=== PATIENT | female | born 1965 | race Caucasian/White ===

== ENCOUNTER 2020-11-08 11:37 | Observation (INO) | payer OTHER ==
[2020-11-08] MEDS ORDERED: ASPIRIN 81 MG PO STA (12:15)
[2020-11-08] MEDS ORDERED: LORazepam 2 MG/ML INJ IV STA (12:16)
[2020-11-08 12:44] LABS: Basophils # (A) 0.1 k/uL (0-0.2); Basophils % (A) 1 %; Eosinophils # (A) 0.3 k/uL (0-0.7); Eosinophils % (A) 4 %; HCT 44.2 % (34.0-46.0); HGB 14.9 gm/dL (11.4-16.0); Lymphocytes # (A) 1.7 k/uL (1.0-4.8); Lymphocytes % (A) 22 %; MCH 30.4 pg (25.0-35.0); MCHC 33.7 g/dL (31.0-37.0); MCV 90.2 fL (80.0-100.0); Mean Platelet Volume 8.1; Monocytes # (A) 0.3 k/uL (0-1.0); Monocytes % (A) 5 %; Neutrophils % (A) 66 %; Platelet Count 324 k/uL (150-450); RDW 13.3 % (11.5-15.5); WBC 7.5 k/uL (3.8-10.6)
[2020-11-08 12:45] LABS: INR 0.9 (<1.2); Partial Thromboplastin Time 25.8 sec (22.0-30.0); Prothrombin Time 9.9 sec (9.0-12.0)
[2020-11-08 12:55] LABS: ALT 25 U/L (4-34); AST 24 U/L (14-36); African American GFR (CKD) >90 (>60 ml/min/1.73 sqM); Albumin 4.6 g/dL (3.5-5.0); Alkaline Phosphatase 111 U/L (38-126); Anion Gap 8 mmol/L; Blood Urea Nitrogen 8 mg/dL (7-17); Calcium 10.4 mg/dL (8.4-10.2); Carbon Dioxide 27 mmol/L (22-30); Chloride 105 mmol/L (98-107); Glucose 93 mg/dL (74-99); Magnesium 1.9 mg/dL (1.6-2.3); Non-African American GFR(CKD) >90 (>60 ml/min/1.73 sqM); Potassium 4.4 mmol/L (3.5-5.1); Sodium 140 mmol/L (137-145); Total Bilirubin 0.5 mg/dL (0.2-1.3); Total Protein 7.3 g/dL (6.3-8.2)
--- NOTE | 2020-11-08 13:15 | XR ---
EXAMINATION TYPE: XR chest 2V DATE OF EXAM: 11/08/2020 COMPARISON: NONE HISTORY: Chest pain TECHNIQUE: Frontal and lateral views of the chest are obtained. FINDINGS: 5mm nodule of the left midlung zone is seen. CT could be considered. Lungs are otherwise clear. Cardiac silhouette is not enlarged. IMPRESSION: 5 mm left midlung zone nodule. CT could be considered if clinically warranted.
--- NOTE | 2020-11-08 14:12 | ED ---
General Adult HPI - General Source: patient Mode of arrival: ambulatory Limitations: no limitations <Dorinda Sarmiento - Last Filed: 11/08/20 14:01> <Margarette Kenny - Last Filed: 11/14/20 01:24> - General Chief complaint: Chest Pain Stated complaint: chest pain Time Seen by Provider: 11/08/20 11:44 - History of Present Illness Initial comments: 54 year-old female patient presents to the emergency department for evaluation of left sided chest pain radiating to the left shoulder and down the left arm. Patient also reports shortness of breath. States that symptoms have been coming on and off for a while but seem to be worse today. States generally the pain starts while she doing some sort of activity. States she did see her primary care physician and had abnormal EKG at his office. States that she was scheduled for stress test on Wednesday. Deneis family history of heart disease. She takes amlodipine for hypertension. Denies history of diabetes. Patient denies any recent rash, fever, chills, cough, abdominal pain, nausea, vomiting, diarrhea, constipation, back pain, numbness, tingling, dizziness, weakness, hematuria, dysuria, urinary urgency, urinary frequency, headache, visual changes, or any other complaints. (Dorinda Sarmiento) - Related Data Home Medications Medication Instructions Recorded Confirmed Estradiol Cream [Estrace Cream 1 applicator VAGINAL SUTH 04/01/17 11/08/20 0.01%] Levothyroxine Sodium [Synthroid] 75 mcg PO DAILY 04/01/17 11/08/20 Loratadine 10 mg PO DAILY 04/01/17 11/08/20 amLODIPine [Norvasc] 10 mg PO DAILY 04/01/17 11/08/20 Diaplex 1 cap PO BID 11/08/20 11/08/20 Ergocalciferol [Vitamin D2 (1250 1,250 mcg PO LUNA 11/08/20 11/08/20 Mcg = 57502 Iu)] Omeprazole 40 mg PO DAILY 11/08/20 11/08/20 Previous Rx's Medication Instructions Recorded Chlorthalidone [Hygroton] 25 mg PO DAILY #30 tab 11/11/20 Metoprolol Succinate (ER) [Toprol 25 mg PO DAILY #90 tab.er.24h 11/11/20 XL] Allergies Allergy/AdvReac Type Severity Reaction Status Date / Time ciprofloxacin [From Cipro] AdvReac "loopy, Verified 11/08/20 13:33 messes with my mind" Review of Systems ROS Other: All systems not noted in ROS Statement are negative. <GuillerminaDorinda M - Last Filed: 11/08/20 14:01> ROS Other: All systems not noted in ROS Statement are negative. <Margarette Kenny - Last Filed: 11/14/20 01:24> ROS Statement: Those systems with pertinent positive or pertinent negative responses have been documented in the HPI. Past Medical History Past Medical History: Asthma, GERD/Reflux, Hypertension, Thyroid Disorder Additional Past Medical History / Comment(s): migraines, IBS, kidney stones History of Any Multi-Drug Resistant Organisms: None Reported Past Surgical History: Cholecystectomy, Hernia Repair, Hysterectomy Additional Past Surgical History / Comment(s): laparoscopy Past Anesthesia/Blood Transfusion Reactions: Motion Sickness, Postoperative Nausea & Vomiting (PONV) Additional Past Anesthesia/Blood Transfusion Reaction / Comment(s): spinal headache-needed blood patch post op Past Psychological History: No Psychological Hx Reported Smoking Status: Never smoker Past Alcohol Use History: Occasional Past Drug Use History: None Reported - Past Family History Mother Family Medical History: No Reported History <Dorinda Sarmiento Pepito - Last Filed: 11/08/20 14:01> General Exam Limitations: no limitations General appearance: alert, in no apparent distress, other (This will well- developed, well-nourished adult female patient in no acute distress. Vital si gns upon presentation are temperature 98.1F, pulse 70, respiration 16, blood pressure 182/103, pulse ox 98% on room air.) Eye exam: Present: normal appearance, PERRL, EOMI. Absent: scleral icterus, conjunctival injection, periorbital swelling ENT exam: Present: normal exam, normal oropharynx, mucous membranes moist Respiratory exam: Present: normal lung sounds bilaterally. Absent: respiratory distress, wheezes, rales, rhonchi, stridor Cardiovascular Exam: Present: regular rate, normal rhythm, normal heart sounds. Absent: systolic murmur, diastolic murmur, rubs, gallop, clicks GI/Abdominal exam: Present: soft, normal bowel sounds. Absent: distended, tenderness, guarding, rebound, rigid Neurological exam: Present: alert, oriented X3, CN II-XII intact Psychiatric exam: Present: normal affect, normal mood Skin exam: Present: warm, dry, intact, normal color. Absent: rash <Dorinda Sarmiento - Last Filed: 11/08/20 14:01> Course Vital Signs 11/08/20 11/08/20 11/08/20 11:39 13:37 15:38 Temperature 98.1 F Pulse Rate 70 70 84 Respiratory 16 18 18 Rate Blood Pressure 182/103 135/91 134/88 O2 Sat by Pulse 98 97 99 Oximetry EKG Findings - EKG Comments: EKG Findings:: EKG obtained at 1150 shows normal sinus rhythm with a ventricular rate is 72, CT interval 154, QRS duration, QT interval 366, QTc 400. No ST elevation or depression <Dorinda Sarmiento - Last Filed: 11/08/20 14:01> Medical Decision Making - Lab Data Result diagrams: 11/08/20 12:22 11/08/20 12:22 - Radiology Data Radiology results: report reviewed, image reviewed <Dorinda Sarmiento - Last Filed: 11/08/20 14:01> - Lab Data Result diagrams: 11/09/20 06:31 11/09/20 06:31 <Margarette Kenny - Last Filed: 11/14/20 01:24> - Medical Decision Making 54-year-old female patient presented for evaluation of left sided chest pain with radiation to the left shoulder down the left arm. Also reports shortness of breath. Physical examination is unremarkable. EKG is unremarkable. She'll be admitted to the hospital for further evaluation and cardiology consultation. She is agreeable this plan. Case discussed with my attending Dr. Kenny. (Dorinda Sarmiento) I was available for consultation in the emergency department. The history and physical exam were done by the midlevel provider. I was consulted for this patients care. I reviewed the case with the midlevel provider and based on their presentation of the patient, I agree with the assessment, medical decision making and plan of care as documented. Chart was dictated using [employer] dictation software. Attempts were made to correct any dictation errors however some typographical errors may persist. (Margarette Kenny) - Lab Data Lab Results 11/08/20 11/08/20 11/08/20 Range/Units 12:22 12:22 12:22 WBC 7.5 (3.8-10.6) k/uL RBC 4.90 (3.80-5.40) m/uL Hgb 14.9 (11.4-16.0) gm/dL Hct 44.2 (34.0-46.0) % MCV 90.2 (80.0-100.0) fL MCH 30.4 (25.0-35.0) pg MCHC 33.7 (31.0-37.0) g/dL RDW 13.3 (11.5-15.5) % Plt Count 324 (150-450) k/uL MPV 8.1 Neutrophils % 66 % Lymphocytes % 22 % Monocytes % 5 % Eosinophils % 4 % Basophils % 1 % Neutrophils # 5.0 (1.3-7.7) k/uL Lymphocytes # 1.7 (1.0-4.8) k/uL Monocytes # 0.3 (0-1.0) k/uL Eosinophils # 0.3 (0-0.7) k/uL Basophils # 0.1 (0-0.2) k/uL PT 9.9 (9.0-12.0) sec INR 0.9 (<1.2) APTT 25.8 (22.0-30.0) sec D-Dimer <0.17 (<0.60) mg/L FEU Sodium 140 (137-145) mmol/L Potassium 4.4 (3.5-5.1) mmol/L Chloride 105 (98-107) mmol/L Carbon Dioxide 27 (22-30) mmol/L Anion Gap 8 mmol/L BUN 8 (7-17) mg/dL Creatinine 0.60 (0.52-1.04) mg/dL Est GFR (CKD-EPI)AfAm >90 (>60 ml/min/1.73 sqM) Est GFR (CKD-EPI)NonAf >90 (>60 ml/min/1.73 sqM) Glucose 93 (74-99) mg/dL Calcium 10.4 H (8.4-10.2) mg/dL Magnesium 1.9 (1.6-2.3) mg/dL Total Bilirubin 0.5 (0.2-1.3) mg/dL AST 24 (14-36) U/L ALT 25 (4-34) U/L Alkaline Phosphatase 111 (38-126) U/L Troponin I (0.000-0.034) ng/mL Total Protein 7.3 (6.3-8.2) g/dL Albumin 4.6 (3.5-5.0) g/dL 11/08/20 Range/Units 12:22 WBC (3.8-10.6) k/uL RBC (3.80-5.40) m/uL Hgb (11.4-16.0) gm/dL Hct (34.0-46.0) % MCV (80.0-100.0) fL MCH (25.0-35.0) pg MCHC (31.0-37.0) g/dL RDW (11.5-15.5) % Plt Count (150-450) k/uL MPV Neutrophils % % Lymphocytes % % Monocytes % % Eosinophils % % Basophils % % Neutrophils # (1.3-7.7) k/uL Lymphocytes # (1.0-4.8) k/uL Monocytes # (0-1.0) k/uL Eosinophils # (0-0.7) k/uL Basophils # (0-0.2) k/uL PT (9.0-12.0) sec INR (<1.2) APTT (22.0-30.0) sec D-Dimer (<0.60) mg/L FEU Sodium (137-145) mmol/L Potassium (3.5-5.1) mmol/L Chloride (98-107) mmol/L Carbon Dioxide (22-30) mmol/L Anion Gap mmol/L BUN (7-17) mg/dL Creatinine (0.52-1.04) mg/dL Est GFR (CKD-EPI)AfAm (>60 ml/min/1.73 sqM) Est GFR (CKD-EPI)NonAf (>60 ml/min/1.73 sqM) Glucose (74-99) mg/dL Calcium (8.4-10.2) mg/dL Magnesium (1.6-2.3) mg/dL Total Bilirubin (0.2-1.3) mg/dL AST (14-36) U/L ALT (4-34) U/L Alkaline Phosphatase (38-126) U/L Troponin I <0.012 (0.000-0.034) ng/mL Total Protein (6.3-8.2) g/dL Albumin (3.5-5.0) g/dL - Radiology Data Two-view x-ray shows 5 mm left midlung nodule. CT could be considered if clinically warranted. (Dorinda Sarmiento) Disposition Decision to Admit Reason: Admit from EC Decision Date: 11/08/20 Decision Time: 14:14 <Dorinda Sarmiento - Last Filed: 11/08/20 14:01> <Margarette Kenny - Last Filed: 11/14/20 01:24> Clinical Impression: Chest pain Disposition: ADMITTED IP TO THIS [facility] Condition: Stable
[2020-11-08] MEDS ORDERED: NITROGLYCERIN SL TABS 0.4 MG TAB SUBLINGUAL PRN (14:14)
[2020-11-08] MEDS: LORATADINE 10 MG TAB PO SCH (19:07)
[2020-11-08] MEDS: amLODIPine 10 MG TAB PO SCH (19:07)
[2020-11-08] MEDS ORDERED: ALPRAZolam 0.25 MG TAB PO PRN (19:33)
[2020-11-08] MEDS ORDERED: TEMAZEPAM 15 MG CAP PO PRN (19:33)
--- NOTE | 2020-11-08 20:42 | CT ---
EXAMINATION TYPE: CT chest wo con DATE OF EXAM: 11/08/2020 COMPARISON: None HISTORY: chest pain with exertion CT DLP: 498.3 mGycm, Automated exposure control for dose reduction was used. CONTRAST: Performed injected with 0 mL of Isovue 300. TECHNIQUE: Axial images were obtained at 5 mm thick sections. Reconstructed images are reviewed on [employer] computer in the coronal plane. FINDINGS: Portion of the thyroid visualized is normal. There is a 0.6 cm nodule within the periphery of the left lung. This appears calcified. Series 4 imag e 24 No enlarged mediastinal or hilar adenopathy is evident. The ascending aorta diameter at the level o f the main pulmonary artery is 4.3 cm. The main pulmonary artery diameter at the bifurcation is 2.[address] sections are obtained through the upper abdomen. There is a 1.4 cm hypodensity within the right lobe liver. Series 3 image 63. This measures 6 Hounsfield units. A 1.3 cm cyst may be near the ligamentum teres. IMPRESSIONS: 1. Ascending thoracic aortic aneurysm 4.3 cm. 2. Calcified granuloma left lung. 3. Possible hepatic cyst right lobe liver. Follow-up liver ultrasound recommended.
[2020-11-08] MEDS ORDERED: DIAPLEX PO SCH (21:00)
--- NOTE | 2020-11-08 21:28 | HP ---
HISTORY AND PHYSICAL DATE OF SERVICE: 11/08/2020 CHIEF COMPLAINT: Chest pain. HISTORY OF PRESENT ILLNESS: This 54-year-old woman with a past medical history of asthma, GERD, hypertension, hypothyroidism, migraine, IBS, kidney stones, being followed by Dr. Josy Millan in the outpatient setting was complaining of chest pain on and off. The patient is complaining of chest pain in the lower part of the left chest and under the breast on the left side, which is really shoulder and left arm. The patient also complains of left arm numbness also. The patient also complains of back pain on the left side also. The pain was aggravated by activity. The patient had a stress test some time ago. Because of concerns of chest pain, the patient the patient went to primary physician, Neela. EKG showed some abnormalities and the patient came to [facility] for evaluation and treatment. The current EKG showed diffuse ST-T changes. The patient also reports that the patient is planning a [facility] in [place], [place], and also planning to hike and do some activities as well. There is no history of fever, rigors, chills, headache, loss of consciousness, seizures at this time. PAST MEDICAL HISTORY: History of asthma, GERD, hypertension, hypothyroidism, migraine, irritable bowel syndrome. MEDICATIONS: Norvasc, omeprazole, loratadine, levothyroxine, estradiol, ALLERGIES: CIPROFLOXACIN. FAMILY HISTORY: History of heart disease in the family. SOCIAL HISTORY: No history of smoking. No history alcohol intake. REVIEW OF SYSTEMS: ENT: No diminished vision. CARDIOVASCULAR: As mentioned. GI: As mentioned, no nausea. : No dysuria. NERVOUS SYSTEM: No numbness, generalized weakness. ALLERGY/IMMUNOLOGY: As mentioned earlier. MUSCULOSKELETAL: As mentioned earlier. HEMATOLOGY/ONCOLOGY: No history of anemia. ENDOCRINE: Hypothyroidism. CONSTITUTIONAL: As mentioned. DERMATOLOGY: As mentioned earlier. PSYCHIATRIC: Mentioned earlier. PHYSICAL EXAM: Patient alert and oriented x4, pulse is 81, blood pressure 150/101, respirations 16, temperature 98.1, pulse ox 97% on room air. HEENT: Conjunctivae normal. Oral mucosa moist. NECK: No jugular venous distention. No lymph nodes. CARDIOVASCULAR SYSTEM: S1, S2 muffled. RESPIRATION: Breath sounds diminished in the bases. No rhonchi. No crackles. ABDOMEN: Soft, nontender. No mass palpable. LEGS: No edema, no swelling. NERVOUS SYSTEM: As mentioned earlier. Moves all 4 limbs. No focal LYMPHATICS: No lymph nodes palpable in the neck, axillae or groin. SKIN: No rash. JOINTS: No active deforming arthropathy. LABS: CBC within normal. D-dimer is negative. Calcium is 10.4. Troponins negative. EKG reviewed personally by me and chest x-ray also reviewed shows 5 mm left midlung nodule. ASSESSMENT: 1. Chest pain, possible unstable angina. 2. Diffuse ST-T changes. 3. Left lung nodule. 4. Asthma. 5. Gastroesophageal reflux disease. 6. Hypertension. 7. History of hypothyroidism. 8. History of migraine. 9. History of irritable bowel syndrome. 10.History of kidney stones. 11.History of cholecystectomy. 12.History of hernia repair. 13.Hysterectomy. 14.History of motion sickness. RECOMMENDATION AND DISCUSSION: This 54-year-old woman who presented with multiple complex medical issues, we will monitor the patient closely. Rule out myocardial infarction protocol. Cardiology consultation. Possible stress test versus cardiac cath. Otherwise, I would also recommend a CT scan of the chest and we will continue to monitor. D-dimer is negative, we will continue to monitor guarded. Home medications were reconciled and further recommendations. MMODL / IJN: [id number] / MTDD
[2020-11-09] MEDS: LEVOTHYROXINE 75 MCG TAB PO SCH (05:46)
[2020-11-09] MEDS: HYDROcodone/APAP 5-325MG 1 EACH TAB PO PRN ×2 (07:36→21:13)
[2020-11-09] MEDS ORDERED: AMINOPHYLLINE 500 MG/20 ML VIAL IV PRN (08:06)
[2020-11-09] MEDS ORDERED: CAFFEINE CITRATE 60 MG/3 ML VIAL IV PRN (08:06)
[2020-11-09] MEDS ORDERED: REGADENOSON 0.4 MG/5 ML SYRINGE IV PRN (08:06)
--- NOTE | 2020-11-09 08:09 | P.CRDCN ---
History of Present Illness Consult date: 11/09/20 Chief complaint: Chest pain History of present illness: This is a very pleasant 54-year-old female patient with a past medical history significant for hypertension as well as obesity who we consulted to severe on the observation unit for chest discomfort. The patient describes intermittent episodes of chest discomfort as well as shortness of breath with exertion. The symptoms started a few weeks ago. She denies any dizziness or lightheadedness and denies any feeling of heart racing or fluttering or syncope. She clearly stated for the last several weeks to several months she noticed shortness of breath with exertion interfering with her daily activities including sometimes her normal household activities. She underwent an EKG which showed sinus rhythm with ST changes concerning for severe underlying coronary artery disease with ST changes and T-wave inversion in the anterolateral leads. The cardiac enzymes came in to be unremarkable. Unfortunately without have any old EKG to compare to this one. She also underwent a computed tomography scan of the chest which showed mild aneurysmal dilation of the aorta at 4.3 cm. No history of coronary artery disease or congestive heart failure and the patient never seen any laminator printed circuit boards in the past. Past Medical History Past Medical History: Asthma, GERD/Reflux, Hypertension, Thyroid Disorder Additional Past Medical History / Comment(s): migraines, IBS, kidney stones History of Any Multi-Drug Resistant Organisms: None Reported Past Surgical History: Cholecystectomy, Hernia Repair, Hysterectomy Additional Past Surgical History / Comment(s): laparoscopy Past Anesthesia/Blood Transfusion Reactions: Motion Sickness, Postoperative Nausea & Vomiting (PONV) Additional Past Anesthesia/Blood Transfusion Reaction / Comment(s): spinal headache-needed blood patch post op Past Psychological History: No Psychological Hx Reported Smoking Status: Never smoker Past Alcohol Use History: Occasional Past Drug Use History: None Reported - Past Family History Mother Family Medical History: No Reported History Medications and Allergies Home Medications Medication Instructions Recorded Confirmed Type Estradiol Cream [Estrace Cream 1 applicator VAGINAL SUTH 04/01/17 11/08/20 History 0.01%] Levothyroxine Sodium [Synthroid] 75 mcg PO DAILY 04/01/17 11/08/20 History Loratadine 10 mg PO DAILY 04/01/17 11/08/20 History amLODIPine [Norvasc] 10 mg PO DAILY 04/01/17 11/08/20 History Diaplex 1 cap PO BID 11/08/20 11/08/20 History Ergocalciferol [Vitamin D2 (1250 1,250 mcg PO LUNA 11/08/20 11/08/20 History Mcg = 10459 Iu)] Omeprazole 40 mg PO DAILY 11/08/20 11/08/20 History Allergies Allergy/AdvReac Type Severity Reaction Status Date / Time ciprofloxacin [From Cipro] AdvReac "loopy, Verified 11/08/20 13:33 messes with my mind" Physical Exam Vitals: Vital Signs Temp Pulse Pulse Resp BP BP BP 11/09/20 07:00 97.5 F L 70 16 143/92 11/09/20 01:44 97.7 F 74 18 141/88 11/08/20 20:18 11/08/20 18:38 97.8 F 81 18 173/96 11/08/20 16:46 11/08/20 16:02 98.1 F 81 16 150/101 11/08/20 15:38 84 18 134/88 11/08/20 13:37 70 18 135/91 11/08/20 11:39 98.1 F 70 16 182/103 Pulse Ox 11/09/20 07:00 95 11/09/20 01:44 98 11/08/20 20:18 96 11/08/20 18:38 97 11/08/20 16:46 98 11/08/20 16:02 97 11/08/20 15:38 99 11/08/20 13:37 97 11/08/20 11:39 98 Intake and Output 11/08/20 11/09/20 11/09/20 22:59 06:59 14:59 Other: Voiding Method Toilet Toilet # Voids 1 1 Weight 93.894 kg - Constitutional General appearance: no acute distress - Respiratory Respiratory: bilateral: CTA - Cardiovascular Rhythm: regular Heart sounds: normal: S1, S2 Results 11/08/20 12:22 11/08/20 12:22 Cardiac Enzymes 11/08/20 11/08/20 11/08/20 Range/Units 12:22 12:22 15:58 AST 24 (14-36) U/L Troponin I <0.012 <0.012 (0.000-0.034) ng/mL 11/08/20 Range/Units 18:47 AST (14-36) U/L Troponin I <0.012 (0.000-0.034) ng/mL Coagulation 11/08/20 Range/Units 12:22 PT 9.9 (9.0-12.0) sec APTT 25.8 (22.0-30.0) sec CBC 11/08/20 Range/Units 12:22 WBC 7.5 (3.8-10.6) k/uL RBC 4.90 (3.80-5.40) m/uL Hgb 14.9 (11.4-16.0) gm/dL Hct 44.2 (34.0-46.0) % Plt Count 324 (150-450) k/uL Comprehensive Metabolic Panel 11/08/20 Range/Units 12:22 Sodium 140 (137-145) mmol/L Potassium 4.4 (3.5-5.1) mmol/L Chloride 105 (98-107) mmol/L Carbon Dioxide 27 (22-30) mmol/L BUN 8 (7-17) mg/dL Creatinine 0.60 (0.52-1.04) mg/dL Glucose 93 (74-99) mg/dL Calcium 10.4 H (8.4-10.2) mg/dL AST 24 (14-36) U/L ALT 25 (4-34) U/L Alkaline Phosphatase 111 (38-126) U/L Total Protein 7.3 (6.3-8.2) g/dL Albumin 4.6 (3.5-5.0) g/dL Current Medications Generic Name Dose Route Start Last Admin Trade Name Freq PRN Reason Stop Dose Admin Hydrocodone Bitart/Acetaminophen 1 each 11/08/20 19:33 11/09/20 07:36 Hydrocodone/Apap 5-325mg 1 Each Tab PO 1 each Q6HR PRN Administration Pain Alprazolam 0.25 mg 11/08/20 19:33 Alprazolam 0.25 Mg Tab PO TID PRN Anxiety Amlodipine Besylate 10 mg 11/08/20 17:00 11/08/20 19:07 Amlodipine 10 Mg Tab PO 10 mg DAILY ANNABELLE Administration Aspirin 325 mg 11/09/20 09:00 Aspirin 325 Mg Tab PO DAILY ANNABELLE Ergocalciferol 1,250 mcg 11/10/20 09:00 Ergocalciferol 1,250 Mcg (50,000 Iu) Capsule PO LUNA ANNABELLE Estradiol 1 applic 11/10/20 19:31 Estradiol 0.1 Mg/Gm Vaginal Cream 42.5 Gm Tube VAGINAL SUTH [facility] Levothyroxine Sodium 75 mcg 11/09/20 06:30 11/09/20 05:46 Levothyroxine 75 Mcg Tab PO 75 mcg DAILY@0630 ANNABELLE Administration Loratadine 10 mg 11/08/20 17:00 11/08/20 19:07 Loratadine 10 Mg Tab PO 10 mg DAILY ANNABELLE Administration Nitroglycerin 0.4 mg 11/08/20 14:14 Nitroglycerin Sl Tabs 0.4 Mg Tab SUBLINGUAL Q5M PRN Chest Pain Pantoprazole Sodium 40 mg 11/09/20 07:30 Pantoprazole 40 Mg Tablet PO DAILY@0730 [facility] Temazepam 15 mg 11/08/20 19:33 Temazepam 15 Mg Cap PO HS PRN Insomnia Intake and Output 11/08/20 11/09/20 11/09/20 22:59 06:59 14:59 Other: Voiding Method Toilet Toilet # Voids 1 1 Weight 93.894 kg 11/08/20 12:22 11/08/20 12:22 Assessment and Plan Assessment: Assessment #1 chest discomfort #2 shortness of breath #3 abnormal EKG concerning for severe CAD Plan #1 acute coronary syndrome was ruled out #2 I advised the patient to undergo a stress test #3 obtain an echocardiogram was Doppler #4 follow-up with the patient #5 add Toprol to the current medical regimen
[2020-11-09 08:55] LABS: African American GFR (CKD) 96.9 (60.0-200.0); Anion Gap 6.1 mmol/L (4.00-12.00); BUN/Creat Ratio 13.75 Ratio (12.00-20.00); Calcium 9.5 mg/dL (8.7-10.3); Carbon Dioxide 27.9 mmol/L (21.6-31.8); Chol/HDL Ratio 4.09; Non-African American GFR(CKD) 83.6 (60.0-200.0); Potassium 4.2 mmol/L (3.5-5.5)
[2020-11-09 09:17] LABS: Basophils # (A) 0.08 X 10*3/uL (0.00-0.10); Basophils % (A) 1.1 %; Eosinophils # (A) 0.38 X 10*3/uL (0.04-0.35); Eosinophils % (A) 5.1 %; HCT 43.4 % (37.2-46.3); Lymphocytes # (A) 1.72 X 10*3/uL (0.90-5.00); Lymphocytes % (A) 23.1 %; MCH 29.9 pg (27.0-32.0); MCHC 32.3 g/dL (32.0-37.0); MCV 92.5 fL (80.0-97.0); Mean Platelet Volume 10.8 fL (9.5-12.2); Monocytes # (A) 0.58 X 10*3/uL (0.20-1.00); Monocytes % (A) 7.8 %; Neutrophils # (A) 4.64 X 10*3/uL (1.80-7.70); Neutrophils % (A) 62.5 %; Platelet Count 309 X 10*3/uL (140-440); RBC 4.69 X 10*6/uL (4.10-5.20); RDW 12.9 % (11.5-14.5); WBC 7.43 X 10*3/uL (4.50-10.00)
[2020-11-09] MEDS: ASPIRIN 325 MG TAB PO SCH (10:17)
[2020-11-09] MEDS: PANTOPRAZOLE 40 MG TABLET PO SCH (10:17)
[2020-11-09] MEDS: METOPROLOL SUCCINATE (ER) 25 MG TAB.ER.24H PO SCH (10:17)
[2020-11-09] MEDS: LORATADINE 10 MG TAB PO SCH (10:17)
[2020-11-09] MEDS: amLODIPine 10 MG TAB PO SCH (10:18)
--- NOTE | 2020-11-09 18:09 | PN ---
PROGRESS NOTE DATE OF SERVICE: 11/09/2020 HISTORY OF PRESENT ILLNESS: This 54-year-old woman who was admitted with chest pain also had a left lung nodule also. Ordered CT scan of the chest which showed calcified granuloma in the left lung and also ascending aneurysm 4.8 cm. Possible hepatic cyst was also noted. Follow-up labs, ultrasound as well as CT scan has been recommended. Cardiology evaluation in progress. EKG showed diffuse ST-T changes Dr. Hillman has recommended a stress test and 2D echo with Doppler also. Patient closely monitored. There is no history of any fever, rigor or chills. PAST MEDICAL HISTORY: Reviewed. REVIEW OF SYSTEMS: CARDIOVASCULAR SYSTEM: As mentioned earlier. GI: As mentioned. : As mentioned. CURRENT MEDS: Are reviewed include [place], Xanax, aspirin, vitamin D2, Synthroid, Claritin. Doses reviewed. PHYSICAL EXAMINATION: Alert and oriented x3. Pulse 72, blood pressure 140/82, respirations 18, temperature 97.4, pulse ox 98% on room air. HEENT: Conjunctivae normal. HEART: S1, S2 muffled. RESPIRATORY SYSTEM: Breath sounds diminished at the bases. No rhonchi no crackles. ABDOMEN: Soft, nontender. No mass palpable. LEGS: No edema no swelling. NERVOUS SYSTEM: Higher functions as mentioned earlier. Moves all 4 limbs. No pain. SKIN: No ulcer. JOINTS: No active deforming arthropathy. LABS: Glucose 121. ASSESSMENT: 1. Chest pain possible unstable angina. 2. Diffuse ST-T changes. 3. Calcified granuloma of the left lung. 4. Ascending thoracic aortic aneurysm 4.3 cm. 5. Possible hepatic cyst. 6. History of asthma, chronic intermittent. 7. Gastroesophageal reflux disease. 8. Hypertension. 9. Hypothyroidism. 10.History of migraine. 11.History of irritable bowel syndrome. 12.History of kidney stones. 13.History of cholecystectomy. 14.History of hernia repair. 15.Hysterectomy. 16.History of motion sickness. RECOMMENDATIONS AND DISCUSSION: I recommend to continue current medications, symptomatic treatment. This patient is high risk for obstructive coronary artery disease. At this time I recommend continue with acute coronary syndrome protocol. Closely follow with Cardiology. Continue the rest of medications. Full inpatient admit just for more than [address] scan reports are reviewed. Prognosis again guarded and recommend close followup in the outpatient setting. MMODL / IJN: [id number] /
[2020-11-10] MEDS: LEVOTHYROXINE 75 MCG TAB PO SCH (05:49)
--- NOTE | 2020-11-10 07:34 | P.PN ---
Subjective Progress Note Date: 11/10/20 Principal diagnosis: Chest discomfort This is a pleasant 54-year-old female patient with a past medical history significant for hypertension who we consulted to see for further evaluation of chest discomfort. The patient was ruled out for acute coronary event. Her EKG is concerning showing diffuse ST and T wave abnormalities. The cardiac enzymes came in to be unremarkable. She underwent also a computed tomography scan which showed an ascending aorta of 4.3 cm. The patient was seen today. Currently she is chest pain. She did have some shortness of breath with exertion earlier today. The blood pressure is elevated. I'm going to add chlorthalidone to the current medical regimen. Also I'm going to schedule the patient to undergo a stress test to rule out severe C AD. Objective - Vital Signs Vital signs: Vital Signs Temp 98.4 F 11/10/20 01:24 Pulse 66 11/10/20 01:24 Resp 18 11/10/20 01:24 BP 148/89 11/10/20 01:24 Pulse Ox 96 11/10/20 01:24 Intake & Output 11/09/20 11/10/20 11/10/20 18:59 06:59 18:59 Other: Voiding Method Toilet Toilet # Voids 5 1 # Bowel Movements 1 - Constitutional General appearance: Present: no acute distress - Respiratory Respiratory: bilateral: diminished - Cardiovascular Rhythm: regular Heart sounds: normal: S1, S2 Abnormal Heart Sounds: Present: systolic murmur - Labs CBC & Chem 7: 11/09/20 06:31 11/09/20 06:31 Labs: Abnormal Lab Results - Last 24 Hours (Table) 11/09/20 11/09/20 Range/Units 06:31 06:31 Eosinophils # 0.38 H (0.04-0.35) X 10*3/uL Glucose 121 H (70-110) mg/dL Assessment and Plan Assessment: Assessment #1 chest discomfort #2 shortness of breath #3 abnormal EKG concerning for severe CAD Plan #1 acute coronary syndrome was ruled out #2 I advised the patient to undergo a stress test #3 obtain an echocardiogram was Doppler #4 follow-up with the patient #5 add chlorthalidone to the current dose of Toprol-XL
[2020-11-10] MEDS: ASPIRIN 325 MG TAB PO SCH (08:42)
[2020-11-10] MEDS: PANTOPRAZOLE 40 MG TABLET PO SCH (08:42)
[2020-11-10] MEDS: HYDROcodone/APAP 5-325MG 1 EACH TAB PO PRN (08:42)
[2020-11-10] MEDS: amLODIPine 10 MG TAB PO SCH (08:43)
[2020-11-10] MEDS: METOPROLOL SUCCINATE (ER) 25 MG TAB.ER.24H PO SCH (08:43)
[2020-11-10] MEDS ORDERED: ERGOCALCIFEROL 1,250 MCG (50,000 IU) CAPSULE PO SCH (09:00)
[2020-11-10] MEDS: CHLORTHALIDONE 25 MG TAB PO SCH (09:03)
[2020-11-10] MEDS: LORATADINE 10 MG TAB PO SCH (10:36)
--- NOTE | 2020-11-10 13:01 | ECHOF ---
Referral Reason:CP MEASUREMENTS -------- HEIGHT: 162.6 cm WEIGHT: 93.9 kg BP: 143/92 RVIDd: 4.0 cm (< 3.3) IVSd: 1.3 cm (0.6 - 1.1) LVIDd: 5.0 cm (3.9 - 5.3) LVPWd: 1.4 cm (0.6 - 1.1) IVSs: 1.8 cm LVIDs: 3.4 cm LVPWs: 1.9 cm LAESV Index (A-L): 18.98 ml/m Ao Diam: 3.3 cm (2.0 - 3.7) AV Cusp: 2.0 cm (1.5 - 2.6) LA Diam: 4.2 cm (2.7 - 3.8) MV EXCURSION: 17.701 mm (> 18.000) MV EF SLOPE: 66 mm/s (70 - 150) EPSS: 1.1 cm MV E Emeka: 0.61 m/s MV DecT: 203 ms MV A Emeka: 0.81 m/s MV E/A Ratio: 0.75 FINDINGS -------- Sinus rhythm. This was a technically difficult study with suboptimal views. The left ventricular size is normal. There is mild concentric left ventricular hypertrophy. Overa ll left ventricular systolic function is normal with, an EF between 55 - 60 %. The diastolic fillin g pattern is normal for the age of the patient 9.37. The right ventricle is mildly enlarged. Normal LA size by volume 22+/-6 ml/m2. The right atrial size is normal. 5.0mg of Lumason was utilized for enhancement of images Interatrial and interventricular septum intact. There is mild aortic valve sclerosis. There is mild aortic regurgitation. There is no evidence of aortic stenosis. No mitral regurgitation. Trace tricuspid regurgitation present. Unable to estimate RVSP due to inadequate TR jet spectral do ppler profile. There is no pulmonic regurgitation present. The aortic root size is normal. IVC Not well visulized. There is no pericardial effusion. CONCLUSIONS -------- 1. The left ventricular size is normal. 2. There is mild concentric left ventricular hypertrophy. 3. Overall left ventricular systolic function is normal with, an EF between 55 - 60 %. 4. The diastolic filling pattern is normal for the age of the patient 9.37 5. The right ventricle is mildly enlarged. 6. There is mild aortic valve sclerosis. 7. There is mild aortic regurgitation. 8. Trace tricuspid regurgitation present. SALES ADVISORY MANAGER: Beulah Crockett RDCS
[2020-11-10] MEDS ORDERED: ESTRADIOL 0.1 MG/GM VAGINAL CREAM 42.5 GM TUBE VAGINAL SCH (19:31)
--- NOTE | 2020-11-10 22:23 | PN ---
PROGRESS NOTE DATE OF SERVICE: 11/10/2020 I am covering for Dr. Millan. This 54-year-old woman who was admitted with chest pain for possible unstable angina, also had diffuse ST-T changes in the EKG. The patient had a 2D echo with Doppler today which showed ejection fraction about 50-60 percent. No other abnormality was noted except minimal enlargement of the right ventricle. A CT scan of the chest was also done which showed ascending aortic aneurysm was 4.3 cm and calcified granuloma of the left leg and possible hepatic cyst of the right lower lobe of the liver. The cardiology is following the patient closely and is recommending a stress test also. No chest pain. No palpitations. No fever. PHYSICAL EXAMINATION: Alert and oriented x3. Pulse is 76. Blood pressure 135/83, respiration 18, temperature 97.7, pulse ox 98% on room air. HEENT: Conjunctivae normal. Neck: No JVD. Cardiovascular: S1, S2 muffled. Respiratory system: Breath sounds diminished at the bases. No rhonchi. No crackles. Abdomen: Soft. Nervous system: No focal deficits. LABS: CBC/BMP noted. ASSESSMENT: 1. Chest pain, possible unstable angina. 2. Diffuse ST-T changes on the EKG. 3. Left lung nodule, possibly calcified granuloma of the left lung. 4. Ascending thoracic aortic aneurysm 4.3 cm. 5. Possible hepatic cyst on the right lower lobe liver, recommend outpatient followup. 6. History of asthma, chronic intermittent. 7. History of gastroesophageal reflux disease. 8. Hypertension. 9. History of hypothyroidism. 10.History of migraine. 11.History of irritable bowel syndrome. 12.History of kidney stones. 13.History of cholecystectomy. 14.History of hernia repair. 15.History of hysterectomy. 16.History of motion sickness. RECOMMENDATIONS AND DISCUSSION: I recommend to continue current medications, management and symptomatic treatment. Medication adjustment by Cardiology noted. Chlorthalidone added to the current regimen. Stress test. Otherwise also recommend close followup with Dr. Millan in the outpatient setting also regarding the above mentioned multiple medical issues, otherwise we will closely follow with Cardiology and Dr. Millan will follow in the morning. MMODL / IJN: [id number] /
[2020-11-11] MEDS: LEVOTHYROXINE 75 MCG TAB PO SCH (05:46)
[2020-11-11] MEDS ORDERED: AMINOPHYLLINE 500 MG/20 ML VIAL IV PRN (07:00)
[2020-11-11] MEDS ORDERED: REGADENOSON 0.4 MG/5 ML SYRINGE IV PRN (07:00)
[2020-11-11] MEDS ORDERED: CAFFEINE CITRATE 60 MG/3 ML VIAL IV PRN (07:00)
[2020-11-11 07:54] VITALS: BP 137/91; PULSE 77; RESP 18; TEMP 97.9
[2020-11-11] MEDS: CHLORTHALIDONE 25 MG TAB PO SCH (08:04)
[2020-11-11] MEDS: amLODIPine 10 MG TAB PO SCH (08:04)
[2020-11-11] MEDS: PANTOPRAZOLE 40 MG TABLET PO SCH (08:04)
[2020-11-11] MEDS: ASPIRIN 325 MG TAB PO SCH (08:04)
[2020-11-11] MEDS: LORATADINE 10 MG TAB PO SCH (08:04)
[2020-11-11] MEDS: METOPROLOL SUCCINATE (ER) 25 MG TAB.ER.24H PO SCH (08:05)
--- NOTE | 2020-11-11 11:36 | P.PN ---
Subjective This is a pleasant 54-year-old female past medical history significant for hypertension, hypothyroidism and obesity. 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 She is seen and examined resting comfortably lying flat on the stretcher in no acute distress. She states this morning she had another episode of tightness in the midsternal region. There is no radiation to the arm, back, neck or jaw. She has no associated symptoms of shortness of breath, dizziness, palpitations, nausea, vomiting or diaphoresis. Blood pressure 137/91 heart rate 77 afebrile maintaining oxygen saturation on room air. GENERAL: Well-appearing, well-nourished and in no acute distress. NECK: Supple without JVD or thyromegaly. LUNGS: Breath sounds clear to auscultation bilaterally. Respiration equal and unlabored. No wheezes, rales or rhonchi. HEART: Regular rate and rhythm without murmurs, rubs or gallops. S1 and S2 heard. EXTREMITIES: Normal range of motion, no edema. No clubbing or cyanosis. Peripheral pulses intact. ASSESSMENT Chest pain, atypical Abnormal baseline EKG Hypertension PLAN Proceed with stress test as previously ordered. If abnormal we will consider coronary angiography. Nurse Practitioner note has been reviewed, I agree with a documented findings and plan of care. Patient was seen and examined. Objective - Vital Signs Vital signs: Vital Signs Temp 97.9 F 11/11/20 07:00 Pulse 77 11/11/20 07:00 Resp 18 11/11/20 07:00 BP 137/91 11/11/20 07:00 Pulse Ox 97 11/11/20 07:00 Intake & Output 11/10/20 11/11/20 11/11/20 18:59 06:59 18:59 Intake Total 1000 Balance 1000 Intake: Oral 1000 Other: Voiding Method Toilet Toilet # Voids 3 1 - Labs CBC & Chem 7: 11/09/20 06:31 11/09/20 06:31
--- NOTE | 2020-11-11 14:04 | NM ---
EXAMINATION TYPE: NM stress lexiscan cardiolite DATE OF EXAM: 11/11/2020 COMPARISON: NONE HISTORY: Chest pain TECHNIQUE: After the intravenous administration of 10.1 mCi Tc 99m Sestamibi - Cardiolite resting SP ECT images acquired 60 minutes post injection. The patient received 0.4mg Lexiscan, 24.7 mCi Tc 99m Sestamibi - Stress images obtained [address] injection FINDINGS: Review of stress and rest SPECT images demonstrates no distinct perfusion abnormality. Gated analysi s shows normal wall motion with an estimated left ventricular ejection fraction of 50 %. TID calcliliant ed at 1.2 IMPRESSION: No scintigraphic evidence for reversible ischemia.
--- NOTE | 2020-11-11 15:41 | P.DS ---
Providers Date of admission: 11/08/20 14:21 Expected date of discharge: 11/11/20 Attending physician: Miles Millan MD Consults: 11/08/20 14:14 Consult Physician Urgent Consulting Provider: [facility] Consult Reason/Comments: Chest pain Do you want consulting provider notified?: Yes Primary care physician: Josy Millan [place] Hospital Course: Final Diagnoses: Chest pain, abnormal EKG, Lexiscan stress test pending Hypertension Ascending thoracic aortic aneurysm 4.3 cm Calcified granuloma left lung Possible hepatic cyst right lobe liver, follow-up liver ultrasound outpatient Gastroesophageal reflux disease Hypertension Chronic intermittent asthma Hospital course: Evaluated by cardiology ,Lexiscan stress test pending. Patient will be discharged home today in a stable condition with guarded prognosis pending stress test results, final DC recommendations and clearance per cardiology. The impression and plan of care has been dictated as directed. : I performed a history and examination of this patient, discussed the same with the dictator. I agree with the dictator's note ,documented as a scribe. Any additional findings or plans will be noted. Patient Condition at Discharge: Stable Plan - Discharge Summary Discharge Rx Participant: No New Discharge Prescriptions: New Metoprolol Succinate (ER) [Toprol XL] 25 mg PO DAILY #90 tab.er.24h Chlorthalidone [Hygroton] 25 mg PO DAILY #30 tab Continue Estradiol Cream [Estrace Cream 0.01%] 1 applicator VAGINAL SUTH amLODIPine [Norvasc] 10 mg PO DAILY Loratadine 10 mg PO DAILY Levothyroxine Sodium [Synthroid] 75 mcg PO DAILY Ergocalciferol [Vitamin D2 (1250 Mcg = 36227 Iu)] 1,250 mcg PO LUNA Omeprazole 40 mg PO DAILY Diaplex 1 cap PO BID Discharge Medication List Estradiol Cream [Estrace Cream 0.01%] 1 applicator VAGINAL SUTH 04/01/17 [History] Levothyroxine Sodium [Synthroid] 75 mcg PO DAILY 04/01/17 [History] Loratadine 10 mg PO DAILY 04/01/17 [History] amLODIPine [Norvasc] 10 mg PO DAILY 04/01/17 [History] Diaplex 1 cap PO BID 11/08/20 [History] Ergocalciferol [Vitamin D2 (1250 Mcg = 24087 Iu)] 1,250 mcg PO LUNA 07/16/21 [History] Omeprazole 40 mg PO DAILY 11/08/20 [History] Chlorthalidone [Hygroton] 25 mg PO DAILY #30 tab 11/11/20 [Rx] Metoprolol Succinate (ER) [Toprol XL] 25 mg PO DAILY #90 tab.er.24h 11/11/20 [Rx] Follow up Appointment(s)/Referral(s): Lane Hillman MD [STAFF PHYSICIAN] - 11/29/20 4:30 pm Josy Millan DO [Primary Care Provider] - 3 Days Patient Instructions/Handouts: Chest Pain (GEN), Cardiac Stress Test (GEN) Activity/Diet/Wound Care/Special Instructions: Pending stress results, final DC recommendations and clearance from cardiology
--- NOTE | 2020-11-12 08:29 | EST ---
EXERCISE STRESS INDICATION: Abnormal EKG with chest pain. AGE: 54 SEX: F HT: 5'4" WT: 206 lbs PROTOCOL: Lexiscan Cardiolite STAGE: N/A DURATION OF EXERCISE: N/A HEART RATE REST: 70 BLOOD PRESSURE REST: 137/87 MAXIMUM HEART RATE ACHIEVED: 88 MAXIMUM BLOOD PRESSURE: 171/92 85% MPHR: 141 100% MPHR: 166 METS: N/A RESULTS: Baseline EKG shows sinus rhythm, inferolateral ST-T wave changes and poor R-wave progression. The patient was given intravenous Lexiscan as per protocol. Did not have chest pain or diagnostic ST-segment depression. CONCLUSIONS: 1. Negative stress test by EKG criteria. 2. Cardiolite portion of the stress test will be reported separately. MMODL / IJN: [id number] /
== END 2020-11-11 15:38 | disposition home or self-care (01) ==
LOC: EC 11:37 → 6NMEDSUR 14:21
PROVIDERS: ADMIT Family Medicine; ATTEND Family Medicine
DX: R07.89 Other chest pain (principal); R94.31 Abnormal electrocardiogram [ECG] [EKG]; I10 Essential (primary) hypertension; I71.2 Thoracic aortic aneurysm, without rupture; J84.10 Pulmonary fibrosis, unspecified; K21.9 Gastro-esophageal reflux disease without esophagitis; J45.20 Mild intermittent asthma, uncomplicated; E03.9 Hypothyroidism, unspecified; K58.9 Irritable bowel syndrome, unspecified; R91.1 Solitary pulmonary nodule; R20.0 Anesthesia of skin; E66.9 Obesity, unspecified; Z79.890 Hormone replacement therapy; Z79.899 Other long term (current) drug therapy; Z88.1 Allergy status to other antibiotic agents; Z90.49 Acquired absence of other specified parts of digestive tract; Z90.710 Acquired absence of both cervix and uterus; Z87.442 Personal history of urinary calculi; Z86.69 Personal history of other diseases of the nervous system and sense organs; Z82.49 Family history of ischemic heart disease and other diseases of the circulatory system
CPT/HCPCS: 93005 ×2; 96374; 99285; 36415; 94760; 93017; 93306; 85379; 80061; 80053; 80048; 83735; 84484; 85025 ×2; 85610; 85730; 71046; 71250; 78452; G0378 ×5; A9500; J2060; J2785; Q9950

== ENCOUNTER 2023-11-08 10:54 | Emergency (ER) | payer OTHER ==
[2023-11-08 10:58] VITALS: TEMP 98
[2023-11-08 11:41] LABS: Basophils % (A) 1 %; Eosinophils # (A) 0.4 k/uL (0-0.7); Eosinophils % (A) 4 %; HCT 48.1 % (34.0-46.0); HGB 15.8 gm/dL (11.4-16.0); Lymphocytes # (A) 1.3 k/uL (1.0-4.8); Lymphocytes % (A) 14 %; MCHC 32.8 g/dL (31.0-37.0); MCV 94.3 fL (80.0-100.0); Mean Platelet Volume 8.4; Monocytes # (A) 0.3 k/uL (0-1.0); Monocytes % (A) 4 %; Neutrophils # (A) 6.9 k/uL (1.3-7.7); Neutrophils % (A) 77 %; Platelet Count 376 k/uL (150-450); WBC 9.1 k/uL (3.8-10.6)
[2023-11-08 11:44] LABS: Appearance,Urine Clear (Clear); Bilirubin,Urine Negative (Negative); Blood,Urine Negative (Negative); Color,Urine Yellow; Glucose,Urine (UA) Negative (Negative); Ketones,Urine Negative (Negative); Leukocyte Esterase,Urine Negative (Negative); Nitrite,Urine Negative (Negative); Protein,Urine Trace (Negative); Specific Gravity,Urine 1.017 (1.001-1.035); Urobilinogen,Urine <2.0 mg/dL (<2.0)
[2023-11-08 11:50] LABS: ALT 46 U/L (4-34); African American GFR (CKD) >90 (>60 ml/min/1.73 sqM); Albumin 4.5 g/dL (3.5-5.0); Amylase 35 U/L (30-110); Anion Gap 9 mmol/L; Blood Urea Nitrogen 8 mg/dL (7-17); Calcium 10.3 mg/dL (8.4-10.2); Carbon Dioxide 25 mmol/L (22-30); Chloride 105 mmol/L (98-107); Glucose 119 mg/dL (74-99); Lipase 90 U/L (23-300); Non-African American GFR(CKD) >90 (>60 ml/min/1.73 sqM); Sodium 139 mmol/L (137-145); Total Bilirubin 1.3 mg/dL (0.2-1.3); Total Protein 7.4 g/dL (6.3-8.2)
[2023-11-08 11:51] LABS: AST 38 U/L (14-36); Alkaline Phosphatase 70 U/L (38-126)
[2023-11-08] MEDS: SODIUM CHLORIDE 0.9% 1,000 ML IV STA (11:52)
[2023-11-08] MEDS: HYDROcodone/APAP 7.5-325MG 1 EACH TAB PO ONE (11:53)
[2023-11-08] MEDS: KETOROLAC 15 MG/ML 1 ML VIAL IVP STA (11:53)
--- NOTE | 2023-11-08 12:15 | ED ---
Abdominal Pain HPI - General Chief Complaint: Abdominal Pain Stated Complaint: Back pain, abd pain Time Seen by Provider: 11/08/23 11:36 Source: patient, RN notes reviewed Mode of arrival: ambulatory Limitations: no limitations - History of Present Illness Initial Comments: This is a 57-year-old female who presents to the emergency department for abdominal pain. States that 3 weeks ago she started developing problems with lower back pain and constipation. This has since turned into diarrhea, and states that she is having increasing abdominal pain. This is worse on the left side and states that it has since started to spread to the right side and up the abdomen. Denies any nausea or vomiting. She went to an emergency department at [facility] last week. She was told that her white blood cell count was "borderline". Unsure what the CT scan showed. She saw her primary care provider who advised that she go to the emergency department for repeat blood work and another CT scan for reevaluation. MD Complaint: abdominal pain - Related Data Home Medications Medication Instructions Recorded Confirmed Levothyroxine Sodium [Synthroid] 75 mcg PO DAILY 04/01/17 11/08/23 Loratadine 10 mg PO DAILY 04/01/17 11/08/23 Omeprazole 40 mg PO DAILY 11/08/20 11/08/23 Atorvastatin [Lipitor] 20 mg PO DAILY 11/08/23 11/08/23 Celecoxib [CeleBREX] 200 mg PO Q2D 11/08/23 11/08/23 Cholecalciferol (Vitamin D3) 1,250 mcg PO LUNA 11/08/23 11/08/23 [Vitamin D3 (1250 Mcg = 50,000 Iu)] Losartan [Cozaar] 50 mg PO DAILY 11/08/23 11/08/23 Solifenacin Succinate [Vesicare] 5 mg PO DAILY 11/08/23 11/08/23 Previous Rx's Medication Instructions Recorded Azithromycin [Zithromax] 250 mg PO DIRECTED 5 Days #6 tab 11/08/23 Dicyclomine [Bentyl] 20 mg PO QID PRN #30 tablet 11/08/23 HYDROcodone/APAP 5-325MG [Franklin 1 tab PO Q6HR PRN 3 Days #12 tab 11/08/23 5-325] Allergies Allergy/AdvReac Type Severity Reaction Status Date / Time ciprofloxacin [From Cipro] AdvReac "loopy, Verified 11/08/23 10:58 messes with my mind" Review of Systems ROS Statement: Those systems with pertinent positive or pertinent negative responses have been documented in the HPI. ROS Other: All systems not noted in ROS Statement are negative. Past Medical History Past Medical History: Asthma, GERD/Reflux, Hypertension, Thyroid Disorder Additional Past Medical History / Comment(s): migraines, IBS, kidney stones History of Any Multi-Drug Resistant Organisms: None Reported Past Surgical History: Cholecystectomy, Hernia Repair, Hysterectomy Additional Past Surgical History / Comment(s): laparoscopy Past Anesthesia/Blood Transfusion Reactions: Motion Sickness, Postoperative Nausea & Vomiting (PONV) Additional Past Anesthesia/Blood Transfusion Reaction / Comment(s): spinal headache-needed blood patch post op Past Psychological History: No Psychological Hx Reported Smoking Status: Never smoker Past Alcohol Use History: Occasional Past Drug Use History: None Reported - Past Family History Mother Family Medical History: No Reported History General Exam Limitations: no limitations General appearance: alert, in no apparent distress Head exam: Present: atraumatic, normocephalic, normal inspection Respiratory exam: Present: normal lung sounds bilaterally. Absent: respiratory distress, wheezes, rales, rhonchi, stridor Cardiovascular Exam: Present: regular rate, normal rhythm, normal heart sounds. Absent: systolic murmur, diastolic murmur, rubs, gallop, clicks GI/Abdominal exam: Present: soft, tenderness (diffuse), normal bowel sounds. Absent: distended Back exam: Present: CVA tenderness (R), CVA tenderness (L) Neurological exam: Present: alert, oriented X3, CN II-XII intact Psychiatric exam: Present: normal affect, normal mood Skin exam: Present: warm, dry, intact, normal color. Absent: rash Course Vital Signs 11/08/23 11/08/23 10:55 13:45 Temperature 98 F Pulse Rate 84 71 Respiratory 18 16 Rate Blood Pressure 147/73 154/97 O2 Sat by Pulse 96 97 Oximetry Procedures - [place] Protocol (Time Out) Nurse: Anastasia Ochoa Medical Decision Making - Medical Decision Making This is a 57-year-old female who presents to the emergency department for abdominal pain. Was pt. sent in by a medical professional or institution? @ -No Did you speak to anyone other than the patient for history? @ -No Did you review nursing and triage notes? @ -Yes, and I agree, it is accurate with regards to the patient's symptoms. Were old charts reviewed? @ -No Differential Diagnosis? @ -Differential Abdominal Pain Women: Appendicitis, Cholecystitis, diverticulosis, ischemic bowel, pancreatitis, hepatitis, UTI, gastroenteritis, AAA, incarcerated hernia, bowel obstruction, constipation, inflammatory bowel, hepatitis, peptic ulcer disease, splenic infarction, perforated viscus, vulvitis, ovarian torsion, PID, kidney stone, placenta abruption, this is not meant to be an all-inclusive list EKG interpreted by me (3pts min.)? @ -EKG interpreted by me demonstrating the following: Sinus rhythm. Ventricular rate 78 bpm, MI interval 153 ms, QRS duration 101 ms, QTc 346 ms. X-rays interpreted by me (1pt min.)? @ -Not obtained CT interpreted by me (1pt min.)? @ -CT scan of the abdomen and pelvis obtained. My interpretation identifies no evidence of bowel wall thickening or free air. U/S interpreted by me (1pt. min.)? @ -Not obtained What testing was considered but not performed? (CT, X-rays, U/S, labs)? Why? @ -None What meds were considered but not given? Why? @ -None Did you discuss the management of the patient with other professionals? @ -No Did you reconcile home meds? @ -No Was smoking cessation discussed for >3mins.? @ -No Was critical care preformed (if so, how long)? @ -No Were there social determinants of health that impacted care today? How? (Homelessness, low income, unemployed, alcoholism, drug addiction, tra nsportation, low edu. Level, literacy, decrease access to med. care, longterm, rehab)? @ -No Was there de-escalation of care discussed even if they declined? (Discuss DNR or withdrawal of care, Hospice)? @ -No What co-morbidities impacted this encounter? (DM, HTN, Smoking, COPD, CAD, Cancer, CVA, Hep., AIDS, mental health diagnosis, sleep apnea, morbid obesity)? @ -IBS, GERD Was patient admitted / discharged? @ -Discharged. Lab work demonstrates a mildly elevated lactic acid of 2.2 and a mild elevation in LFTs. Urinalysis negative for signs of infection. CT scan of the abdomen and pelvis demonstrates no acute process. She has diverticulosis without diverticulitis. Discussed with the patient that the cause of her symptoms is not entirely clear. It could be related to something like IBS. Symptoms were managed in the emergency department. She was given a dose of Bentyl which she did find somewhat helpful. She also inquired about antibiotics given the duration of her symptoms. Discussed that antibiotics can often make bowel issues worse, however I am agreeable to trying azithromycin, which can sometimes be easier on the bowels. Advised she discontinue this if it makes it worse. She was also given a prescription for Bentyl to see if that offers any additional benefit. She is also unable to take NSAIDs due to an aneurysm and she was given a short-term supply of Franklin to be taken sparingly. Otherwise advised close follow-up with her PCP. Undiagnosed new problem with uncertain prognosis? @ -None Drug Therapy requiring intensive monitoring for toxicity (Heparin, Nitro, Insulin, Cardizem)? @ -None Were any procedures done? @ -None Diagnosis/symptom? @ -Abdominal pain Acute, or Chronic, or Acute on Chronic? @ -Acute Uncomplicated (without systemic symptoms) or Complicated (systemic symptoms)? @ -Uncomplicated Side effects of treatment? @ -None Exacerbation, Progression, or Severe Exacerbation] @ -Not applicable Poses a threat to life or bodily function? @ -No Return precautions reviewed in depth, the patient is instructed to return to the emergency department with any new, worsening, or concerning symptoms. Patient verbalized understanding. This case was discussed in detail with the attending ED physician, Dr. Ingram. Presentation, findings, and treatment plan discussed in detail as well. - Lab Data Result diagrams: 11/08/23 11:34 11/08/23 11:34 Lab Results 11/08/23 11/08/23 11/08/23 Range/Units 11:34 11:34 11:34 WBC 9.1 (3.8-10.6) k/uL RBC 5.10 (3.80-5.40) m/uL Hgb 15.8 (11.4-16.0) gm/dL Hct 48.1 H (34.0-46.0) % MCV 94.3 (80.0-100.0) fL MCH 31.0 (25.0-35.0) pg MCHC 32.8 (31.0-37.0) g/dL RDW 13.0 (11.5-15.5) % Plt Count 376 (150-450) k/uL MPV 8.4 Neutrophils % 77 % Lymphocytes % 14 % Monocytes % 4 % Eosinophils % 4 % Basophils % 1 % Neutrophils # 6.9 (1.3-7.7) k/uL Lymphocytes # 1.3 (1.0-4.8) k/uL Monocytes # 0.3 (0-1.0) k/uL Eosinophils # 0.4 (0-0.7) k/uL Basophils # 0.0 (0-0.2) k/uL Sodium 139 (137-145) mmol/L Potassium 5.0 (3.5-5.1) mmol/L Chloride 105 (98-107) mmol/L Carbon Dioxide 25 (22-30) mmol/L Anion Gap 9 mmol/L BUN 8 (7-17) mg/dL Creatinine 0.58 (0.52-1.04) mg/dL Est GFR (CKD-EPI)AfAm >90 (>60 ml/min/1.73 sqM) Est GFR (CKD-EPI)NonAf >90 (>60 ml/min/1.73 sqM) Glucose 119 H (74-99) mg/dL Lactic Ac Sepsis Rflx Plasma Lactic Acid Yovany (0.7-2.0) mmol/L Calcium 10.3 H (8.4-10.2) mg/dL Total Bilirubin 1.3 (0.2-1.3) mg/dL AST 38 H (14-36) U/L ALT 46 H (4-34) U/L Alkaline Phosphatase 70 (38-126) U/L Total Protein 7.4 (6.3-8.2) g/dL Albumin 4.5 (3.5-5.0) g/dL Amylase 35 (30-110) U/L Lipase 90 (23-300) U/L Urine Color Yellow Urine Appearance Clear (Clear) Urine pH 6.0 (5.0-8.0) Ur Specific [place] 1.017 (1.001-1.035) Urine Protein Trace H (Negative) Urine Glucose (UA) Negative (Negative) Urine Ketones Negative (Negative) Urine Blood Negative (Negative) Urine Nitrite Negative (Negative) Urine Bilirubin Negative (Negative) Urine Urobilinogen <2.0 (<2.0) mg/dL Ur Leukocyte Esterase Negative (Negative) 11/08/23 11/08/23 Range/Units 11:34 11:56 WBC (3.8-10.6) k/uL RBC (3.80-5.40) m/uL Hgb (11.4-16.0) gm/dL Hct (34.0-46.0) % MCV (80.0-100.0) fL MCH (25.0-35.0) pg MCHC (31.0-37.0) g/dL RDW (11.5-15.5) % Plt Count (150-450) k/uL MPV Neutrophils % % Lymphocytes % % Monocytes % % Eosinophils % % Basophils % % Neutrophils # (1.3-7.7) k/uL Lymphocytes # (1.0-4.8) k/uL Monocytes # (0-1.0) k/uL Eosinophils # (0-0.7) k/uL Basophils # (0-0.2) k/uL Sodium (137-145) mmol/L Potassium (3.5-5.1) mmol/L Chloride (98-107) mmol/L Carbon Dioxide (22-30) mmol/L Anion Gap mmol/L BUN (7-17) mg/dL Creatinine (0.52-1.04) mg/dL Est GFR (CKD-EPI)AfAm (>60 ml/min/1.73 sqM) Est GFR (CKD-EPI)NonAf (>60 ml/min/1.73 sqM) Glucose (74-99) mg/dL Lactic Ac Sepsis Rflx Y Plasma Lactic Acid Yovany 2.2 H* (0.7-2.0) mmol/L Calcium (8.4-10.2) mg/dL Total Bilirubin (0.2-1.3) mg/dL AST (14-36) U/L ALT (4-34) U/L Alkaline Phosphatase (38-126) U/L Total Protein (6.3-8.2) g/dL Albumin (3.5-5.0) g/dL Amylase (30-110) U/L Lipase (23-300) U/L Urine Color Urine Appearance (Clear) Urine pH (5.0-8.0) Ur Specific [place] (1.001-1.035) Urine Protein (Negative) Urine Glucose (UA) (Negative) Urine Ketones (Negative) Urine Blood (Negative) Urine Nitrite (Negative) Urine Bilirubin (Negative) Urine Urobilinogen (<2.0) mg/dL Ur Leukocyte Esterase (Negative) - Radiology Data Radiology results: report reviewed, image reviewed Disposition Clinical Impression: Abdominal pain Disposition: HOME SELF-CARE Instructions (If sedation given, give patient instructions): Abdominal Pain (ED) Additional Instructions: Return to the emergency department with any new, worsening, or concerning symptoms. Take the antibiotic as prescribed for 5 days. You can take the Bentyl up to 4 times daily for abdominal pain/cramping/spasms. Take the Franklin sparingly when your pain is the most severe and be aware that it may make you drowsy. Follow up with your primary care provider in 1-2 days. Prescriptions: Dicyclomine [Bentyl] 20 mg PO QID PRN #30 tablet PRN Reason: Gi Upset HYDROcodone/APAP 5-325MG [Franklin 5-325] 1 tab PO Q6HR PRN 3 Days #12 tab PRN Reason: Pain Azithromycin [Zithromax] 250 mg PO DIRECTED 5 Days #6 tab Is patient prescribed a controlled substance at d/c from ED?: Yes When asked, does pt state using other controlled substances?: No If prescribed controlled substance>3 days was MAPS reviewed?: Prescribed <3 Days Referrals: Josy Millan DO [Primary Care Provider] - 1-2 days Time of Disposition: 13:25
--- NOTE | 2023-11-08 12:37 | CT ---
EXAMINATION TYPE: CT abdomen pelvis w con CT DLP: 1234 mGycm, Automated exposure control for dose reduction was used. DATE OF EXAM: 11/08/2023 12:24 PM COMPARISON: CT chest 11/09/2019 CLINICAL INDICATION:Female, 57 years old with history of Abdominal pain, acute, nonlocalized; abd sami n TECHNIQUE: Standard CT of the abdomen and pelvis following the administration of 100 cc of Isovue 3 00 IV contrast material. Coronal and sagittal reformats were performed. FINDINGS: LOWER CHEST: Cardiomegaly. ABDOMEN LIVER: Few scattered hepatic cysts with largest measuring up to 2.2 cm and the left hepatic lobe. GALLBLADDER AND BILE DUCTS: The gallbladder is surgically absent. No biliary ductal dilatation. PANCREAS: Unremarkable. SPLEEN: Scattered calcified granulomas. ADRENAL GLANDS: Unremarkable. KIDNEYS AND URETERS: No evidence of hydronephrosis. The kidneys enhance symmetrically. No left renal calculi. Nonobstructive right upper pole 5 mm calculus. Right upper pole 1.5 cm cyst. Contrast is dem onstrated within both collecting systems on the delayed phase. PELVIS BLADDER: Incompletely distended but grossly unremarkable. REPRODUCTIVE: The uterus is surgically absent. Both ovaries appear symmetric. ABDOMEN & PELVIS STOMACH AND BOWEL: Small hiatal hernia, duodenum is unremarkable. No evidence of bowel obstruction. C olonic diverticulosis without evidence for acute diverticulitis. The appendix is within normal limits . PERITONEUM: No evidence of pneumoperitoneum or free fluid. VASCULATURE: No evidence of aortic aneurysm. Pelvic phleboliths. MUSCULOSKELETAL: No acute osseous abnormalities. Mild multilevel degenerative disc disease. LYMPH NODES: No gross evidence for lymphadenopathy. SOFT TISSUE/ABDOMINAL WALL: Unremarkable IMPRESSION: 1. No CT evidence for acute abdominopelvic process. 2. Colonic diverticulosis without evidence of acute diverticulitis. 3. Nonobstructive right renal calculus.
[2023-11-08] MEDS: DICYCLOMINE 10 MG/ML 2 ML AMP IM STA (12:57)
[2023-11-08 13:46] VITALS: BP 154/97; PULSE 71; RESP 16
== END 2023-11-08 13:48 | disposition home or self-care (01) ==
LOC: EC 10:54
DX: K57.30 Diverticulosis of large intestine without perforation or abscess without bleeding (principal); N20.0 Calculus of kidney
CPT/HCPCS: 36415; 93005; 80053; 82150; 83605; 83690; 85025; 81003; 74177; 99284; 96372; 96374; 96361 ×2; J0500; J1885; Q9967